=== PATIENT | female | born 1965 | race African-American/Black ===

== ENCOUNTER 2016-12-01 10:04 | Inpatient (IN) | payer BC ==
[~2016-12-01] VITALS: Ht 162.6 cm; Wt 75.3 kg
[2016-12-01 10:16] VITALS: BP 158/94
[2016-12-01] MEDS ORDERED: OXYCODONE-ACET1 EAC3 ORAL (10:56)
[2016-12-01] MEDS ORDERED: AMOX TR-K CLV1 EAC2 ORAL (10:56)
[2016-12-01] MEDS ORDERED: ZOFRAN ODT8 MG ORAL (10:56)
[2016-12-01] MEDS ORDERED: KETOROLAC TROME10 MG PO (10:56)
[2016-12-01 11:18] LABS: APPEARANCE,URINE SLIGHTLY CLOUDY; KETONES,URINE 3+ (NEGATIVE); LEUKOCYTE ESTERASE ,URINE 2+ (NEGATIVE); NITRITE,URINE NEGATIVE (NEGATIVE); PH,URINE 6 (4.5-8.0); PROTEIN,URINE 2+ (NEGATIVE); UROBILINOGEN,URINE NORMAL MG/DL (0.0-1.0)
[2016-12-01 11:18] LABS: BASOPHILS % (AUTO) 1.5 % (0.0-2.0); LYMPHOCYTES % (AUTO) 9.8 % (20.0-45.0); MEAN CORPUSCULAR HEMOGLOBIN 29.2 PG (27.0-31.0); MEAN CORPUSCULAR HGB CONC 31.7 G/DL (32.0-36.0); MEAN CORPUSCULAR VOLUME 92 FL (80-99); MEAN PLATELET VOLUME 8.6 FL (6.5-10.1); MONOCYTES % (AUTO) 6.4 % (1.0-10.0); NEUTROPHILS % (AUTO) 82.3 % (45.0-75.0); PLATELET COUNT 288 K/UL (150-450); RED BLOOD COUNT 4.62 M/UL (4.20-5.40); RED CELL DISTRIBUTION WIDTH 11.4 % (11.6-14.8); WHITE BLOOD COUNT 10.9 K/UL (4.8-10.8)
[2016-12-01 11:28] LABS: BACTERIA,URINE FEW /HPF; SQUAMOUS EPITHELIAL CELL,UR MODERATE /LPF (NONE/OCC)
[2016-12-01 11:29] VITALS: BP 152/82
[2016-12-01 11:29] LABS: MUCUS,URINE FEW /LPF (NONE/OCC)
[2016-12-01] MEDS ORDERED: LORazepam Inj 2mg/ml 1ml IV ONE (11:30)
[2016-12-01] MEDS ORDERED: Metoclopramide 10mg/2ml Inj IVP ONE (11:30)
[2016-12-01 11:45] LABS: ALANINE AMINOTRANSFERASE 10 U/L (3-33); ALBUMIN/GLOBULIN RATIO 1.4 (1.0-2.7); ASPARTATE AMINO TRANSFERASE 19 U/L (5-40); CALCIUM 9.4 mg/dL (8.6-10.2); CARBON DIOXIDE 25 mEQ/L (20-30); CHLORIDE 100 mEQ/L (98-107); CREATININE 0.7 mg/dL (0.5-0.9); GLOMERULAR FILTRATION RATE > 60 mL/min (>60); HEMOLYSIS 3; LIPASE 13 U/L (< 60); SODIUM 143 mEQ/L (135-145); TOTAL PROTEIN 7.7 g/dL (6.6-8.7)
[2016-12-01 11:50] LABS: ANION GAP 18 (5-15)
[2016-12-01 11:54] LABS: POTASSIUM 2.6 mEQ/L (3.4-4.9)
[2016-12-01] MEDS ORDERED: KCl 10% 40mEq/30ml liquid ORAL ONE (12:00)
--- NOTE | 2016-12-01 12:39 | Consultation ---
Consult Note Consult Note see full dictation MARJORIE THOMAS Dec 01, 2016 12:39
[2016-12-01] MEDS ORDERED: Ketorolac 60mg Inj IV PRN (12:45)
[2016-12-01] MEDS ORDERED: Miralax 17gm pkt ORAL PRN (12:45)
--- NOTE | 2016-12-01 12:59 | Emergency Room Report ---
History of Present Illness General Chief Complaint: Nausea Source: Patient Present Illness HPI [id number] presents sent by Dr Fernandes for severe post-op nausea, unrelieved with zofran, since embolization for uterine fibroids 3 days ago. Denies vomiting, diarrhea, fever/chills. Denies abd pain, urinary complaints. Allergies: Coded Allergies: No Known Allergies (Verified Allergy, Unknown, 10/29/07) Patient History Past Medical History: other - uterine fibroids Past Surgical History: other - uterine embolization Pertinent Family History: none Social History: Denies: alcohol use, drug use, smoking Last Menstrual Period: 11/11/16 Now: No : 4 Para: 2 Immunizations: UTD Reviewed Nursing Documentation: PMH: Agreed, PSxH: Agreed Nursing Documentation-PMH Past Medical History: No Stated History Review of Systems All Other Systems: negative except mentioned in HPI Physical Exam Vital Signs Date Time Temp Pulse Resp B/P Pulse Ox O2 Delivery O2 Flow Rate FiO2 12/01/16 10:10 98.2 77 18 158/94 100 Room Air Sp02 EP Interpretation: reviewed, normal General Appearance: normal inspection, well appearing, no apparent distress, alert, GCS 15, non-toxic Head: normocephalic, atraumatic Eyes: bilateral eye EOMI, bilateral eye PERRL ENT: normal ENT inspection, hearing grossly normal, normal voice Neck: normal inspection, full range of motion, supple, no bony tend Respiratory: normal inspection, lungs clear, normal breath sounds, no respiratory distress, no retraction, no wheezing Cardiovascular #1: regular rate, rhythm, no edema Gastrointestinal: normal inspection, normal bowel sounds, non tender, soft, no guarding, no hernia Genitourinary: no CVA tenderness Musculoskeletal: normal inspection, back normal, normal range of motion, Abraham' s Sign negative Neurologic: normal inspection, alert, oriented x3, responsive, handtools repairer III-XII nml as tested, motor strength/tone normal, speech normal Psychiatric: normal inspection, judgement/insight normal, mood/affect normal Skin: normal inspection, normal color, no rash Lymphatic: normal inspection Medical Decision Making Diagnostic Impression: Primary Impression: Nausea alone Additional Impression: Hypokalemia ER Course Severe post-op nausea - K depleted. Was repleted in ED - Nausea improved, tolerating PO s/p IV reglan, ativan - Mild leuks 11k. UA with WBCs but also many squams, likely contaminated - Abd serially non-focal - CTAP: No acute findings. Enlarged uterus with fibroids. - Findings above communicated to Dr Fernandes on phone Agrees for admission at 1pm to med/surg bed Advised HOLDING on ABx for now Last Vital Signs Date Time Temp Pulse Resp B/P Pulse Ox O2 Delivery O2 Flow Rate FiO2 12/01/16 11:29 97.4 61 14 152/82 98 Room Air Status: improved Disposition: ADMITTED INPATIENT Condition: Serious Referrals: NON PHYSICIAN (PCP) GURVINDER YUSUF M.D. Dec 01, 2016 12:59
[2016-12-01] MEDS ORDERED: Metoclopramide 10mg/2ml Inj IVP PRN (13:15)
[2016-12-01] MEDS ORDERED: HYDROmorphone 1mg/ml Carpuject IVP PRN (13:15)
[2016-12-01] MEDS ORDERED: Ketorolac 30mg Inj IV PRN ×2 (13:30→13:48)
[2016-12-01] MEDS ORDERED: Docusate 100mg cap ORAL ONE (13:30)
[2016-12-01 13:32] VITALS: BP 143/78
--- NOTE | 2016-12-01 14:01 | General Surgery Progress Note ---
General Surgery-Progress Note Subjective Day of Surgery: november 29, 2016 Reason for Consult uncontrolled post operative nausea Procedure Performed uterine artery embolization Symptoms: pain absent, not tolerating diet, passing flatus Objective Last 24 Hour Vital Signs Date Time Temp Pulse Resp B/P Pulse Ox O2 Delivery O2 Flow Rate FiO2 12/01/16 13:32 97.1 70 20 143/78 96 Room Air 12/01/16 13:04 97.4 61 14 152/82 98 Room Air 12/01/16 11:29 97.4 61 14 152/82 98 Room Air 12/01/16 10:16 98.2 18 158/94 100 Room Air 12/01/16 10:10 98.2 77 18 158/94 100 Room Air Dressing: dry Wound: clean Drains: none Cardiovascular: RSR Respiratory: clear Abdomen: soft, flat, present bowel sounds Extremities: no edema, no tenderness, no cyanosis Laboratory Tests Test 12/01/16 10:18 12/01/16 10:45 Urine Color Yellow Urine Appearance Slightly cloudy Urine pH 6 (4.5-8.0) Urine Specific [place] 1.020 (1.005-1.035) Urine Protein 2+ (NEGATIVE) H Urine Glucose (UA) Negative (NEGATIVE) Urine Ketones 3+ (NEGATIVE) H Urine Occult Blood 4+ (NEGATIVE) H Urine Nitrite Negative (NEGATIVE) Urine Bilirubin Negative (NEGATIVE) Urine Urobilinogen Normal MG/DL (0.0-1.0) Urine Leukocyte Esterase 2+ (NEGATIVE) H Urine RBC 5-10 /HPF (0 - 2) H Urine WBC 5-10 /HPF (0 - 2) H Urine Squamous Epithelial Cells Moderate /LPF (NONE/OCC) H Urine Bacteria Few /HPF (NONE) Urine Mucus Few /LPF (NONE/OCC) H Urine HCG, Qualitative Negative White Blood Count 10.9 K/UL (4.8-10.8) H Red Blood Count 4.62 M/UL (4.20-5.40) Hemoglobin 13.5 G/DL (12.0-16.0) Hematocrit 42.6 % (37.0-47.0) Mean Corpuscular Volume 92 FL (80-99) Mean Corpuscular Hemoglobin 29.2 PG (27.0-31.0) Mean Corpuscular Hemoglobin Concent 31.7 G/DL (32.0-36.0) L Red Cell Distribution Width 11.4 % (11.6-14.8) L Platelet Count 288 K/UL (150-450) Mean Platelet Volume 8.6 FL (6.5-10.1) Neutrophils (%) (Auto) 82.3 % (45.0-75.0) H Lymphocytes (%) (Auto) 9.8 % (20.0-45.0) L Monocytes (%) (Auto) 6.4 % (1.0-10.0) Eosinophils (%) (Auto) 0.0 % (0.0-3.0) Basophils (%) (Auto) 1.5 % (0.0-2.0) Sodium Level 143 mEQ/L (135-145) Potassium Level 2.6 mEQ/L (3.4-4.9) *L Chloride Level 100 mEQ/L (98-107) Carbon Dioxide Level 25 mEQ/L (20-30) Anion Gap 18 (5-15) H Blood Urea Nitrogen 8 mg/dL (7-23) Creatinine 0.7 mg/dL (0.5-0.9) Estimat Glomerular Filtration Rate > 60 mL/min (>60) Glucose Level 132 mg/dL (74-106) H Calcium Level 9.4 mg/dL (8.6-10.2) Total Bilirubin 0.8 mg/dL (0.0-1.2) Aspartate Amino Transf (AST/SGOT) 19 U/L (5-40) Alanine Aminotransferase (ALT/SGPT) 10 U/L (3-33) Alkaline Phosphatase 70 U/L (35-104) Total Protein 7.7 g/dL (6.6-8.7) Albumin 4.5 g/dL (3.5-5.2) Globulin 3.2 g/dL Albumin/Globulin Ratio 1.4 (1.0-2.7) Amylase Level Pending Lipase 13 U/L (< 60) Imaging CT scan abdomen and pelvis, no acute findings. hypokalemia noted inED Assessment Post-op Diagnosis nausea, vomiting uncontrolled on admission, now improved. GI consult appreciated. possible response to narcotics. Plan Additional Comments iv hydration, anti nausea medication, replace potassium. Raymond Fernandes MD Dec 01, 2016 14:01
[2016-12-01] MEDS: ceFAZolin sod 1 GM in D5W 55 ML IVPB SCH ×2 (14:57→21:35)
[2016-12-01] MEDS: Potassium Chloride 30 MEQ in Dextrose 5%/Lactated Ringer's 1,000 ML IV SCH ×2 (15:00→21:35)
[2016-12-01 15:55] VITALS: BP 147/83
[2016-12-01 20:11] VITALS: BP 130/67
--- NOTE | 2016-12-01 22:30 | Consultation ---
DATE OF CONSULTATION: 12/01/2016 GASTROENTEROLOGY CONSULTATION CHIEF COMPLAINT: Nausea, vomiting, and abdominal pain. HISTORY OF PRESENT ILLNESS: This is a pleasant 51-year-old female, who had a uterine embolization on Friday. She was sent home. She started having pain and vomiting. She said that she is not sure if it is secondary to Percocet that she is taking because Percocet made her sick in the past. She is able to pass the bowel movement with MiraLAX. No sign or symptoms of bowel obstruction. She is able to pass gas. No hematemesis. No dysphagia. No odynophagia. PAST MEDICAL HISTORY: Significant for history of uterine fibroids, status post embolization. MEDICATIONS: Please see medication reconciliation list. ALLERGIES: No known drug allergies. SOCIAL HISTORY: The patient denies any tobacco, alcohol, or drug abuse. FAMILY HISTORY: No family history of GI malignancies. REVIEW OF SYSTEMS: A 10-point review of system was performed and pertinent positives in history of present illness. PHYSICAL EXAMINATION: VITAL SIGNS: Temperature 97.4 degrees, pulse 61, respiratory rate 14, and blood pressure 150/82. HEENT: Normocephalic and atraumatic. Sclerae anicteric. NECK: Supple. No JVD. CARDIOVASCULAR: Regular and rhythm. Plus S1 and S2. LUNGS: Clear to auscultation bilaterally. ABDOMEN: Bowel sounds are present. Soft. Tenderness with palpation in the epigastric area. No rebound. No guarding. No peritoneal sign. EXTREMITIES: No cyanosis. No clubbing. No edema. LABORATORY AND DIAGNOSTIC DATA: White count is 10.9, hemoglobin 13, hematocrit 42, and platelet count is 288,000. Sodium 143, potassium 3.6, BUN is 8, and creatinine 0.7. Liver function grossly normal. CT of the abdomen and pelvis ordered and results are pending. ASSESSMENT AND PLAN: This is a 51-year-old female with nausea and vomiting post uterine embolization. This is because of nausea and vomiting, at this time one possibility will be this is Percocet, plain narcotics-based of having vomiting. There is no sign or symptoms of bowel obstruction. At this time, no abnormal liver function test. Abdominal exam is relatively benign. Plan to follow up on a CT scan, which has been already done. We will follow on the results. Start the patient on Reglan and Zofran for nausea and vomiting. Avoid narcotics. Toradol for pain management. MiraLAX for constipation. We will follow. Stephen Pineda M.D. DR: STEVAN JOB#: [id number] CC:
[2016-12-02 00:31] VITALS: BP 128/71
[2016-12-02] MEDS: Potassium Chloride 30 MEQ in Dextrose 5%/Lactated Ringer's 1,000 ML IV SCH ×3 (01:59→16:25)
[2016-12-02 04:13] VITALS: BP 129/72
[2016-12-02] MEDS: ceFAZolin sod 1 GM in D5W 55 ML IVPB SCH ×4 (05:29→21:47)
[2016-12-02 06:50] LABS: ALANINE AMINOTRANSFERASE 8 U/L (3-33); ALBUMIN/GLOBULIN RATIO 1.3 (1.0-2.7); ANION GAP 16 (5-15); ASPARTATE AMINO TRANSFERASE 18 U/L (5-40); CALCIUM 9.3 mg/dL (8.6-10.2); CARBON DIOXIDE 26 mEQ/L (20-30); CHLORIDE 100 mEQ/L (98-107); CREATININE 0.6 mg/dL (0.5-0.9); GLOMERULAR FILTRATION RATE > 60 mL/min (>60); HEMOLYSIS 3; POTASSIUM 3.4 mEQ/L (3.4-4.9); SODIUM 142 mEQ/L (135-145); TOTAL PROTEIN 6.6 g/dL (6.6-8.7)
[2016-12-02 07:03] LABS: BASOPHILS % (AUTO) 2.2 % (0.0-2.0); EOSINOPHILS % (AUTO) 0.3 % (0.0-3.0); LYMPHOCYTES % (AUTO) 18.6 % (20.0-45.0); MEAN CORPUSCULAR HEMOGLOBIN 30.2 PG (27.0-31.0); MEAN CORPUSCULAR HGB CONC 32.4 G/DL (32.0-36.0); MEAN CORPUSCULAR VOLUME 93 FL (80-99); MEAN PLATELET VOLUME 7.8 FL (6.5-10.1); NEUTROPHILS % (AUTO) 68.1 % (45.0-75.0); PLATELET COUNT 241 K/UL (150-450); RED BLOOD COUNT 4.27 M/UL (4.20-5.40); RED CELL DISTRIBUTION WIDTH 11.2 % (11.6-14.8); WHITE BLOOD COUNT 9.5 K/UL (4.8-10.8)
[2016-12-02 08:00] VITALS: BP 133/78
--- NOTE | 2016-12-02 10:01 | General Surgery Progress Note ---
General Surgery-Progress Note Subjective Day of Surgery: november 29 Procedure Performed uterine artery embolization Symptoms: improved, tolerating diet, passing flatus, BM Objective Last 24 Hour Vital Signs Date Time Temp Pulse Resp B/P Pulse Ox O2 Delivery O2 Flow Rate FiO2 12/02/16 08:00 97.0 61 17 133/78 98 Room Air 12/02/16 04:13 98.1 66 19 129/72 96 Room Air 12/02/16 00:31 99.1 65 18 128/71 97 Room Air 12/01/16 21:00 99.0 12/01/16 20:11 100.0 86 18 130/67 100 Room Air 12/01/16 16:57 98.4 12/01/16 15:55 102.2 72 20 147/83 96 Room Air 12/01/16 13:32 97.1 70 20 143/78 96 Room Air 12/01/16 13:04 97.4 61 14 152/82 98 Room Air 12/01/16 11:29 97.4 61 14 152/82 98 Room Air 12/01/16 10:16 98.2 18 158/94 100 Room Air 12/01/16 10:10 98.2 77 18 158/94 100 Room Air I&O Intake and Output 12/01/16 12/02/16 19:00 07:00 Intake Total 655 ml 1610 ml Balance 655 ml 1610 ml Intake IV Total 655 ml 1610 ml # Voids 1 2 Dressing: dry Wound: clean Drains: none Cardiovascular: RSR Respiratory: clear Abdomen: soft, flat, non-tender, present bowel sounds Laboratory Tests Test 12/01/16 10:18 12/01/16 10:45 12/02/16 05:30 Urine Color Yellow Urine Appearance Slightly cloudy Urine pH 6 (4.5-8.0) Urine Specific [place] 1.020 (1.005-1.035) Urine Protein 2+ (NEGATIVE) H Urine Glucose (UA) Negative (NEGATIVE) Urine Ketones 3+ (NEGATIVE) H Urine Occult Blood 4+ (NEGATIVE) H Urine Nitrite Negative (NEGATIVE) Urine Bilirubin Negative (NEGATIVE) Urine Urobilinogen Normal MG/DL (0.0-1.0) Urine Leukocyte Esterase 2+ (NEGATIVE) H Urine RBC 5-10 /HPF (0 - 2) H Urine WBC 5-10 /HPF (0 - 2) H Urine Squamous Epithelial Cells Moderate /LPF (NONE/OCC) H Urine Bacteria Few /HPF (NONE) Urine Mucus Few /LPF (NONE/OCC) H Urine HCG, Qualitative Negative White Blood Count 10.9 K/UL (4.8-10.8) H 9.5 K/UL (4.8-10.8) Red Blood Count 4.62 M/UL (4.20-5.40) 4.27 M/UL (4.20-5.40) Hemoglobin 13.5 G/DL (12.0-16.0) 12.9 G/DL (12.0-16.0) Hematocrit 42.6 % (37.0-47.0) 39.8 % (37.0-47.0) Mean Corpuscular Volume 92 FL (80-99) 93 FL (80-99) Mean Corpuscular Hemoglobin 29.2 PG (27.0-31.0) 30.2 PG (27.0-31.0) Mean Corpuscular Hemoglobin Concent 31.7 G/DL (32.0-36.0) L 32.4 G/DL (32.0-36.0) Red Cell Distribution Width 11.4 % (11.6-14.8) L 11.2 % (11.6-14.8) L Platelet Count 288 K/UL (150-450) 241 K/UL (150-450) Mean Platelet Volume 8.6 FL (6.5-10.1) 7.8 FL (6.5-10.1) Neutrophils (%) (Auto) 82.3 % (45.0-75.0) H 68.1 % (45.0-75.0) Lymphocytes (%) (Auto) 9.8 % (20.0-45.0) L 18.6 % (20.0-45.0) L Monocytes (%) (Auto) 6.4 % (1.0-10.0) 11.0 % (1.0-10.0) H Eosinophils (%) (Auto) 0.0 % (0.0-3.0) 0.3 % (0.0-3.0) Basophils (%) (Auto) 1.5 % (0.0-2.0) 2.2 % (0.0-2.0) H Sodium Level 143 mEQ/L (135-145) 142 mEQ/L (135-145) Potassium Level 2.6 mEQ/L (3.4-4.9) *L 3.4 mEQ/L (3.4-4.9) Chloride Level 100 mEQ/L (98-107) 100 mEQ/L (98-107) Carbon Dioxide Level 25 mEQ/L (20-30) 26 mEQ/L (20-30) Anion Gap 18 (5-15) H 16 (5-15) H Blood Urea Nitrogen 8 mg/dL (7-23) 6 mg/dL (7-23) L Creatinine 0.7 mg/dL (0.5-0.9) 0.6 mg/dL (0.5-0.9) Estimat Glomerular Filtration Rate > 60 mL/min (>60) > 60 mL/min (>60) Glucose Level 132 mg/dL (74-106) H 124 mg/dL (74-106) H Calcium Level 9.4 mg/dL (8.6-10.2) 9.3 mg/dL (8.6-10.2) Total Bilirubin 0.8 mg/dL (0.0-1.2) 0.7 mg/dL (0.0-1.2) Aspartate Amino Transf (AST/SGOT) 19 U/L (5-40) 18 U/L (5-40) Alanine Aminotransferase (ALT/SGPT) 10 U/L (3-33) 8 U/L (3-33) Alkaline Phosphatase 70 U/L (35-104) 67 U/L (35-104) Total Protein 7.7 g/dL (6.6-8.7) 6.6 g/dL (6.6-8.7) Albumin 4.5 g/dL (3.5-5.2) 3.8 g/dL (3.5-5.2) Globulin 3.2 g/dL 2.8 g/dL Albumin/Globulin Ratio 1.4 (1.0-2.7) 1.3 (1.0-2.7) Amylase Level 77 U/L (10-110) Lipase 13 U/L (< 60) Imaging CT scan reviewed, normal bowel, contrast in gall bladder secondary to uae procedure Additional Comments wbc down today, no growth on cultures Assessment Post-op Diagnosis nausea, vomiting uncontrolled on admission, now improved. GI consult appreciated. possible response to narcotics. Additional Comments symptoms improved, "gas pain" today Plan Additional Comments per GI, will advance diet, and rx gas pain, probable am discharge tomorrow. Raymond Fernandes MD Dec 02, 2016 10:01
--- NOTE | 2016-12-02 11:06 | Diagnostic Imaging Report ---
Clinical Indication: Abdominal pain Technique: No oral contrast utilized, per emergency room physician request IV administration nonionic contrast. Venous phase spiral acquisition obtained through the abdomen and pelvis. Multiplanar reconstructions were generated. Total dose length product 776 mGycm. CTDIvol(s) 16 mGy. Dose reduction achieved using automated exposure control Comparison: None Findings: The appendix is normal. No evidence of diverticulosis or diverticulitis. No small bowel distention. No free or loculated intraperitoneal air or fluid. Probable small sliding-type hiatal hernia noted. The stomach and duodenum are unremarkable. The gallbladder contains dense material, possibly excreted contrast from an earlier study. A subtle 8 mm low-attenuation lesion is seen in the dome of the right hepatic lobe. This is in segment 8. The pancreas, spleen, cysts adrenals, kidney are unremarkable. The uterus is enlarged, demonstrates multiple low-attenuation and masses as well as there is a calcification, consistent with fibroid changes. No adnexal. No retroperitoneal, pelvic, mesenteric mass or adenopathy demonstrated. Surgical clips are seen in the right pelvis. The lung bases demonstrate posterior dependent atelectatic changes, particularly on the right. The bones are unremarkable. Impression: No acute abnormality Increased attenuation in the gallbladder, most likely excretion of prior contrast, could represent milk of calcium bile or tiny layering stones Evidence of prior pelvic surgery Fibroid uterus Bilateral basilar pulmonary parenchymal dependent atelectatic changes. Low-attenuation subcentimeter right lobe liver lesion, too small to characterize, most likely benign simple cysts or bile hamartomas. No further followup necessary. Incidental note of possible sliding-type hiatal hernia This agrees with the preliminary interpretation provided overnight by Dr. Cabrera The CT scanner at [facility] is accredited by the [employer] and the scans are performed using protocols designed to limit radiation exposure to as low as reasonably achievable to attain images of sufficient resolution adequate for diagnostic evaluation.
[2016-12-02 12:00] VITALS: BP 132/79
[2016-12-02 16:00] VITALS: BP 130/70
[2016-12-02] MEDS: Simethicone 80mg tab ORAL PRN ×2 (18:10→22:00)
[2016-12-02 20:24] VITALS: BP 119/74
[2016-12-03 00:12] VITALS: BP 121/74
[2016-12-03] MEDS: Potassium Chloride 30 MEQ in Dextrose 5%/Lactated Ringer's 1,000 ML IV SCH (01:05)
[2016-12-03] MEDS: ceFAZolin sod 1 GM in D5W 55 ML IVPB SCH (01:05)
[2016-12-03 04:00] VITALS: BP 127/63
--- NOTE | 2016-12-03 07:28 | General Progress Note ---
Assessment/Plan Assessment/Plan Assessment - Resolved N/V - Uterine fibroid - s/p uterine artery embolization Recommendations - PO diet - follow exam - BRANCH LENDING MANAGER f/u Subjective Allergies: Coded Allergies: No Known Allergies (Verified Allergy, Unknown, 10/29/07) Subjective Feels much better no abd pain nausea resolved hungry (+) BM yesterday Objective Last 24 Hour Vital Signs Date Time Temp Pulse Resp B/P Pulse Ox O2 Delivery O2 Flow Rate FiO2 12/03/16 04:00 98.2 55 19 127/63 98 Room Air 12/03/16 00:12 99.1 55 18 121/74 99 Room Air 12/02/16 20:24 99.5 57 20 119/74 99 Room Air 12/02/16 16:58 98.2 12/02/16 16:00 98.2 57 18 130/70 98 Room Air 12/02/16 12:00 98.4 54 16 132/79 97 Room Air 12/02/16 10:31 97.0 12/02/16 08:00 97.0 61 17 133/78 98 Room Air Intake and Output 12/02/16 12/03/16 19:00 07:00 # Voids 3 Height (Feet): 5 Height (Inches): 4.00 Weight (Pounds): 166 Objective WDWN AA woman NCAT supple CTA RRR abd soft ND NT no edema non focal patient seen 12/02/16. This is a delayed entry note. ALDO HERNANDEZ Dec 03, 2016 07:28
[2016-12-03 08:37] VITALS: BP 145/76
[2016-12-03 10:34] LABS: BASOPHILS % (AUTO) 1.7 % (0.0-2.0); EOSINOPHILS % (AUTO) 0.4 % (0.0-3.0); LYMPHOCYTES % (AUTO) 24.1 % (20.0-45.0); MEAN CORPUSCULAR HEMOGLOBIN 29.3 PG (27.0-31.0); MEAN CORPUSCULAR HGB CONC 31.2 G/DL (32.0-36.0); MEAN CORPUSCULAR VOLUME 94 FL (80-99); MEAN PLATELET VOLUME 7.8 FL (6.5-10.1); MONOCYTES % (AUTO) 11.9 % (1.0-10.0); NEUTROPHILS % (AUTO) 61.9 % (45.0-75.0); PLATELET COUNT 217 K/UL (150-450); RED BLOOD COUNT 3.94 M/UL (4.20-5.40); RED CELL DISTRIBUTION WIDTH 11.1 % (11.6-14.8)
[2016-12-03 10:57] LABS: ANION GAP 15 (5-15); CARBON DIOXIDE 26 mEQ/L (20-30); CHLORIDE 99 mEQ/L (98-107); CREATININE 0.6 mg/dL (0.5-0.9); GLOMERULAR FILTRATION RATE > 60 mL/min (>60); HEMOLYSIS 8; POTASSIUM 3.7 mEQ/L (3.4-4.9); SODIUM 140 mEQ/L (135-145)
[2016-12-03 12:00] VITALS: BP 133/72
[2016-12-03] MEDS ORDERED: NKM (20:14)
--- NOTE | 2016-12-03 21:55 | General Progress Note ---
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 - dc planning Subjective Allergies: Coded Allergies: No Known Allergies (Verified Allergy, Unknown, 10/29/07) Subjective Feels well no abd pain nausea resolved (+) BM Objective Last 24 Hour Vital Signs Date Time Temp Pulse Resp B/P Pulse Ox O2 Delivery O2 Flow Rate FiO2 12/03/16 12:00 98.0 56 20 133/72 Room Air 12/03/16 08:37 98.1 55 18 145/76 100 Room Air 12/03/16 04:00 98.2 55 19 127/63 98 Room Air 12/03/16 00:12 99.1 55 18 121/74 99 Room Air Intake and Output 12/02/16 12/03/16 19:00 07:00 # Voids 3 Laboratory Tests 12/03/16 10:15: White Blood Count 7.0, Red Blood Count 3.94L, Hemoglobin 11.5L, Hematocrit 36.9L , Mean Corpuscular Volume 94, Mean Corpuscular Hemoglobin 29.3, Mean Corpuscular Hemoglobin Concent 31.2L, Red Cell Distribution Width 11.1L, Platelet Count 217, Mean Platelet Volume 7.8, Neutrophils (%) (Auto) 61.9, Lymphocytes (%) (Auto) 24.1, Monocytes (%) (Auto) 11.9H, Eosinophils (%) (Auto) 0.4, Basophils (%) (Auto) 1.7, Sodium Level 140, Potassium Level 3.7, Chloride Level 99, Carbon Dioxide Level 26, Anion Gap 15, Blood Urea Nitrogen 3L, Creatinine 0.6, Estimat Glomerular Filtration Rate > 60, Glucose Level 114H, Calcium Level 9.0 Height (Feet): 5 Height (Inches): 4.00 Weight (Pounds): 166 Objective WDWN AA woman NCAT supple CTA RRR abd soft ND NT no edema non focal ALDO HERNANDEZ Dec 03, 2016 21:54
--- NOTE | 2016-12-05 09:27 | Discharge Summary ---
Discharge Summary Hospital Course Date of Admission Dec 01, 2016 at 10:58 Date of Discharge Dec 03, 2016 at 13:10 Admitting Diagnosis Post Operative Nausea JOSR Talamantes is a 51 year old female who was admitted on Dec 01, 2016 at 10:58 for Post Operative Nausea Hospital Course [id number] Discharge Discharge Disposition Patient was discharged to home Discharge Diagnoses: Brielle Wayne NP Dec 05, 2016 09:27
--- NOTE | 2016-12-05 22:31 | Discharge Summary 2 SIG ---
DATE OF ADMISSION: 12/01/2016 DATE OF DISCHARGE: 12/03/2016 CONSULTANTS: Sana Lucas M.D. BRIEF HOSPITAL COURSE: The patient is a 51-year-old female, who had uterine embolization on 11/29/2016. She was sent home and started to have abdominal pain and vomiting. She was able to pass bowel movement with MiraLAX. There was no sign or symptom of bowel obstruction and she was able to pass gas. She was followed by GI service. She was not tolerating diet. She was given IV hydration, antinausea medications, and potassium was replaced, potassium was 2.6. Abdominal and pelvic CT showed no acute abnormality with increased attenuation in the gallbladder, fibroid uterus, and evidence of prior pelvic surgery. The patient had bowel movement. Nausea and vomiting resolved. The patient was eventually discharged home. FINAL DIAGNOSES: 1. Uterine fibroids, status post recent uterine artery embolization. 2. Nausea and vomiting. Raymond Durbin M.D. I have been assigned to dictate discharge summary on this account and I was not involved in the patient's management. Brielle Wayne N.P. DR: ESMER JOB#: [id number] CC:
--- NOTE | 2016-12-05 23:06 | General Progress Note ---
Assessment/Plan Assessment/Plan Assessment - Resolved N/V - Uterine fibroid - s/p uterine artery embolization Recommendations - PO diet - follow exam - [employer] f/u - dc planning Subjective Allergies: Coded Allergies: No Known Allergies (Verified Allergy, Unknown, 10/29/07) Subjective Feels well no abd pain nausea resolved (+) BM for d/c today Objective Height (Feet): 5 Height (Inches): 4.00 Weight (Pounds): 166 Objective WDWN AA woman NCAT supple CTA RRR abd soft ND NT no edema non focal ALDO HERNANDEZ Dec 05, 2016 23:06
== END 2016-12-03 13:10 | disposition home or self-care (01) | DRG 392 ==
LOC: EMR 10:55 → 3E 10:58 → EDBEDREQ 12:28 → 3E 13:58
DX: R11.2 Nausea with vomiting, unspecified (principal); E87.6 Hypokalemia; Z98.890 Other specified postprocedural states
CPT/HCPCS: 36415; 74177; 80048; 80053; 81003; 81025; 82150; 83690; 85025; 87040; 87081; 87086; 87324; J2405; J2765

== ENCOUNTER 2016-12-03 20:04 | Inpatient (IN) | payer BC ==
[~2016-12-03] VITALS: Ht 162.6 cm; Wt 75.3 kg
[~2016-12-03 20:04] MED LIST: AMOX TR-K CLV1 EAC2 ORAL; KETOROLAC TROME10 MG PO; OXYCODONE-ACET1 EAC3 ORAL; ZOFRAN ODT8 MG ORAL
[2016-12-03] MEDS ORDERED: NKM (20:14)
[2016-12-03 20:20] VITALS: BP 140/72
[2016-12-03] MEDS ORDERED: HYDROmorphone 1mg/ml Carpuject IVP ONE (20:30)
[2016-12-03 21:07] LABS: APPEARANCE,URINE CLEAR; KETONES,URINE 3+ (NEGATIVE); LEUKOCYTE ESTERASE ,URINE 2+ (NEGATIVE); NITRITE,URINE NEGATIVE (NEGATIVE); PH,URINE 8 (4.5-8.0); PROTEIN,URINE 1+ (NEGATIVE); UROBILINOGEN,URINE NORMAL MG/DL (0.0-1.0)
[2016-12-03 21:12] LABS: BASOPHILS % (AUTO) 1.5 % (0.0-2.0); EOSINOPHILS % (AUTO) 0.2 % (0.0-3.0); LYMPHOCYTES % (AUTO) 10.7 % (20.0-45.0); MEAN CORPUSCULAR HEMOGLOBIN 30.4 PG (27.0-31.0); MEAN CORPUSCULAR HGB CONC 32.9 G/DL (32.0-36.0); MEAN CORPUSCULAR VOLUME 92 FL (80-99); MEAN PLATELET VOLUME 7.6 FL (6.5-10.1); MONOCYTES % (AUTO) 4.7 % (1.0-10.0); NEUTROPHILS % (AUTO) 82.9 % (45.0-75.0); PLATELET COUNT 235 K/UL (150-450); RED BLOOD COUNT 4.15 M/UL (4.20-5.40); RED CELL DISTRIBUTION WIDTH 11.3 % (11.6-14.8); WHITE BLOOD COUNT 9.2 K/UL (4.8-10.8)
[2016-12-03 21:16] LABS: AMORPHOUS SEDIMENT,UR MODERATE /LPF; BACTERIA,URINE MODERATE /HPF; SQUAMOUS EPITHELIAL CELL,UR MODERATE /LPF (NONE/OCC)
[2016-12-03 21:20] LABS: ALANINE AMINOTRANSFERASE 8 U/L (3-33); ALBUMIN/GLOBULIN RATIO 1.4 (1.0-2.7); ANION GAP 18 (5-15); ASPARTATE AMINO TRANSFERASE 16 U/L (5-40); CALCIUM 9.5 mg/dL (8.6-10.2); CARBON DIOXIDE 25 mEQ/L (20-30); CHLORIDE 97 mEQ/L (98-107); CREATININE 0.7 mg/dL (0.5-0.9); GLOMERULAR FILTRATION RATE > 60 mL/min (>60); HEMOLYSIS 2; LIPASE 19 U/L (< 60); SODIUM 140 mEQ/L (135-145); TOTAL PROTEIN 7.5 g/dL (6.6-8.7)
--- NOTE | 2016-12-03 21:22 | Emergency Room Report ---
History of Present Illness General Chief Complaint: Abdominal Pain Source: Patient (LORNA MOBLEY M.D.) Present Illness HPI 51-year-old female presents ED complaining of abdominal pain. Patient states she had uterine artery embolization surgery done for his days ago here at [place]. Patient was discharged today. On the way home she started to experience lower abdominal pain, sharp, 10 out of 10, nonradiating. Notes nausea and vomiting. Patient came back after she spoke to the surgeon Dr. Fernandes. Denies fevers chills. Denies chest pain or shortness of breath. No other aggravating or relieving factors. Denies any other associated symptoms (LORNA MOBLEY M.D.) Allergies: Coded Allergies: No Known Allergies (Verified Allergy, Unknown, 10/29/07) Patient History Past Medical History: none Past Surgical History: other - uterine artery embolization Pertinent Family History: none Social History: Denies: alcohol use, drug use, smoking Last Menstrual Period: now Now: No Immunizations: UTD Reviewed Nursing Documentation: PMH: Agreed, PSxH: Agreed (LORNA MOBLEY M.D.) Nursing Documentation-PMH Past Medical History: No History, Except For Hx Cardiac Problems: No Hx Cancer: No Hx Gastrointestinal Problems: No Hx Neurological Problems: No (LORNA MOBLEY M.D.) Review of Systems All Other Systems: negative except mentioned in HPI (LORNA MOBLEY M.D.) Physical Exam Vital Signs Date Time Temp Pulse Resp B/P Pulse Ox O2 Delivery O2 Flow Rate FiO2 12/03/16 20:08 98.6 77 16 159/76 100 Room Air Sp02 EP Interpretation: reviewed, normal General Appearance: alert, GCS 15, non-toxic, moderate distress Head: normocephalic Eyes: bilateral eye PERRL, bilateral eye normal inspection ENT: normal ENT inspection Neck: normal inspection Respiratory: chest non-tender, lungs clear, normal breath sounds, speaking full sentences Cardiovascular #1: regular rate, rhythm, no edema Gastrointestinal: normal bowel sounds, soft, non-distended, no guarding, no rebound, tenderness - lower abdomen Rectal: deferred Genitourinary: no CVA tenderness Musculoskeletal: normal inspection Neurologic: alert, oriented x3, responsive, motor strength/tone normal, sensory intact, speech normal Psychiatric: normal inspection Skin: normal inspection Lymphatic: normal inspection (LORNA MOBLEY M.D.) Medical Decision Making Diagnostic Impression: Primary Impression: Postoperative abdominal pain Additional Impressions: Status post embolization of uterine artery UTI (urinary tract infection) Labs Test 12/03/16 20:35 White Blood Count 9.2 K/UL (4.8-10.8) Red Blood Count 4.15 M/UL (4.20-5.40) Hemoglobin 12.6 G/DL (12.0-16.0) Hematocrit 38.3 % (37.0-47.0) Mean Corpuscular Volume 92 FL (80-99) Mean Corpuscular Hemoglobin 30.4 PG (27.0-31.0) Mean Corpuscular Hemoglobin Concent 32.9 G/DL (32.0-36.0) Red Cell Distribution Width 11.3 % (11.6-14.8) Platelet Count 235 K/UL (150-450) Mean Platelet Volume 7.6 FL (6.5-10.1) Neutrophils (%) (Auto) 82.9 % (45.0-75.0) Lymphocytes (%) (Auto) 10.7 % (20.0-45.0) Monocytes (%) (Auto) 4.7 % (1.0-10.0) Eosinophils (%) (Auto) 0.2 % (0.0-3.0) Basophils (%) (Auto) 1.5 % (0.0-2.0) Urine Color Pale yellow Urine Appearance Clear Urine pH 8 (4.5-8.0) Urine Specific [place] 1.020 (1.005-1.035) Urine Protein 1+ (NEGATIVE) Urine Glucose (UA) Negative (NEGATIVE) Urine Ketones 3+ (NEGATIVE) Urine Occult Blood 5+ (NEGATIVE) Urine Nitrite Negative (NEGATIVE) Urine Bilirubin Negative (NEGATIVE) Urine Urobilinogen Normal MG/DL (0.0-1.0) Urine Leukocyte Esterase 2+ (NEGATIVE) Urine RBC 10-15 /HPF (0 - 2) Urine WBC 5-10 /HPF (0 - 2) Urine Squamous Epithelial Cells Moderate /LPF (NONE/OCC) Urine Amorphous Sediment Moderate /LPF (NONE) Urine Bacteria Moderate /HPF (NONE) Sodium Level 140 mEQ/L (135-145) Potassium Level 3.0 mEQ/L (3.4-4.9) Chloride Level 97 mEQ/L (98-107) Carbon Dioxide Level 25 mEQ/L (20-30) Anion Gap 18 (5-15) Blood Urea Nitrogen 4 mg/dL (7-23) Creatinine 0.7 mg/dL (0.5-0.9) Estimat Glomerular Filtration Rate > 60 mL/min (>60) Glucose Level 130 mg/dL (74-106) Calcium Level 9.5 mg/dL (8.6-10.2) Total Bilirubin 0.6 mg/dL (0.0-1.2) Aspartate Amino Transf (AST/SGOT) 16 U/L (5-40) Alanine Aminotransferase (ALT/SGPT) 8 U/L (3-33) Alkaline Phosphatase 66 U/L (35-104) Total Protein 7.5 g/dL (6.6-8.7) Albumin 4.4 g/dL (3.5-5.2) Globulin 3.1 g/dL Albumin/Globulin Ratio 1.4 (1.0-2.7) Lipase 19 U/L (< 60) (LORNA MOBLEY M.D.) ER Course Patient signout to co for CT scan report. CT scan showed ileus. Patient already admitted. Symptoms better. (MYLENE HERNÁNDEZ M.D.) CT/MRI/US Diagnostic Results CT/MRI/US Diagnostic Results : Imaging Test Ordered: CT abdomen and pelvis Impression read by radiologist. Postoperative changes. Ileus. (MYLENE HERNÁNDEZ M.D.) Last Vital Signs Date Time Temp Pulse Resp B/P Pulse Ox O2 Delivery O2 Flow Rate FiO2 12/03/16 20:20 98.6 94 16 140/72 100 Room Air Status: improved (LORNA MOBLEY M.D.) Disposition: ADMITTED INPATIENT Condition: Serious Referrals: Raymond Fernandes MD (PCP) LORNA MOBLEY M.D. Dec 03, 2016 21:22 MYLENE HERNÁNDEZ M.D. Dec 03, 2016 23:04
[2016-12-03] MEDS ORDERED: cefTRIAXone 1 GM in NS 55 ML IVPB ONE (21:45)
[2016-12-03 22:00] VITALS: BP 142/74
[2016-12-03 22:30] VITALS: BP 147/86
[2016-12-03] MEDS ORDERED: HYDROmorphone 1mg/ml Carpuject IVP PRN ×2 (22:45→23:15)
[2016-12-03] MEDS ORDERED: Metoclopramide 10mg/2ml Inj IVP PRN (23:00)
[2016-12-03 23:30] VITALS: BP 138/70
[2016-12-03 23:40] VITALS: BP 147/86
[2016-12-04 04:00] VITALS: BP 123/76
[2016-12-04 07:09] LABS: BASOPHILS % (AUTO) 1.7 % (0.0-2.0); EOSINOPHILS % (AUTO) 0.6 % (0.0-3.0); LYMPHOCYTES % (AUTO) 21.6 % (20.0-45.0); MEAN CORPUSCULAR HEMOGLOBIN 29.9 PG (27.0-31.0); MEAN CORPUSCULAR HGB CONC 31.9 G/DL (32.0-36.0); MEAN CORPUSCULAR VOLUME 94 FL (80-99); NEUTROPHILS % (AUTO) 65.2 % (45.0-75.0); PLATELET COUNT 227 K/UL (150-450); RED BLOOD COUNT 3.71 M/UL (4.20-5.40); RED CELL DISTRIBUTION WIDTH 11.2 % (11.6-14.8); WHITE BLOOD COUNT 8.5 K/UL (4.8-10.8)
[2016-12-04 07:25] LABS: ALANINE AMINOTRANSFERASE 6 U/L (3-33); ALBUMIN/GLOBULIN RATIO 1.4 (1.0-2.7); ANION GAP 13 (5-15); ASPARTATE AMINO TRANSFERASE 13 U/L (5-40); CALCIUM 8.9 mg/dL (8.6-10.2); CARBON DIOXIDE 26 mEQ/L (20-30); CHLORIDE 101 mEQ/L (98-107); CREATININE 0.6 mg/dL (0.5-0.9); GLOMERULAR FILTRATION RATE > 60 mL/min (>60); HEMOLYSIS 2; POTASSIUM 3.1 mEQ/L (3.4-4.9); SODIUM 140 mEQ/L (135-145); TOTAL PROTEIN 6.3 g/dL (6.6-8.7)
[2016-12-04] MEDS ORDERED: Potassium Chloride 20 MEQ in Dextrose 5%/Lactated Ringer's 1,000 ML IV SCH (08:00)
[2016-12-04 08:05] VITALS: BP 137/66
--- NOTE | 2016-12-04 09:23 | Diagnostic Imaging Report ---
Clinical Indication: Bowel pain, history of recent uterine artery embolization Technique: No oral contrast utilized, per emergency room physician request IV administration nonionic contrast. Venous phase spiral acquisition obtained through the abdomen and pelvis. Multiplanar reconstructions were generated. Total dose length product 847 mGycm. CTDIvol(s) 17 mGy. Dose reduction achieved using automated exposure control Comparison: 12/01/2016 Findings: Lack of enteric contrast limits assessment of the GI tract. The cecum is prominent, fluid-filled, but does not demonstrate wall thickening. Mildly prominent borderline thick walled small bowel loops are seen in the left upper quadrant. No free or loculated intraperitoneal air or fluid. The duodenum, stomach, distal esophagus are unremarkable. There is a small umbilical hernia. Again demonstrated is a small sliding-type hiatal hernia Uterus demonstrates multiple areas of decreased attenuation, more strikingly hypoattenuating than on the previous study. Calcifications are seen within the uterus. What are likely embolization coils are seen in the right side of the pelvis. No gas is seen within the uterus Previously demonstrated gallbladder contrast is no longer evident. There may be a few small gallstones. The liver again demonstrates subtle low-attenuation lesion in segment 8. A second lesion also in segment 8 is now apparent, not evident on the prior exam. These are both too small to characterize The bile ducts, pancreas, spleen, adrenals, kidneys are unremarkable. No retroperitoneal or mesenteric mass or adenopathy. There is mild atherosclerosis of the left common iliac artery The included lung bases demonstrate interim development of small bilateral pleural effusions. There are posterior dependent atelectatic changes again demonstrated. The heart is borderline enlarged. The bones are unremarkable. Impression: Progressive decreased attenuation of uterine masses, consistent with progressive necrosis of embolized uterine fibroids. No evident complication. Mildly prominent fluid-filled ascending colon and a few small bowel loops, may represent mild ileus Small bilateral pleural effusions, developing over 2 days Borderline cardiomegaly Posterior dependent pulmonary atelectatic changes Subcentimeter right hepatic lobe low-attenuation lesions, too small to characterize, most likely benign simple cysts or bile hamartomas Other findings as noted, including small sliding-type hiatal hernia, embolic coils in the right pelvis This agrees with the preliminary interpretation provided overnight by Dr. Cabrera. Images were also reviewed in person with Dr. Fernandes The CT scanner at [facility] is accredited by the [employer] and the scans are performed using protocols designed to limit radiation exposure to as low as reasonably achievable to attain images of sufficient resolution adequate for diagnostic evaluation.
[2016-12-04] MEDS: HYDROmorphone 1mg/ml Carpuject IVP PRN ×3 (10:06→21:22)
--- NOTE | 2016-12-04 10:58 | General Surgery Progress Note ---
General Surgery-Progress Note Subjective Day of Surgery: november 29 Reason for Consult abdominal pain Symptoms: worse, voiding well, passing flatus Objective Last 24 Hour Vital Signs Date Time Temp Pulse Resp B/P Pulse Ox O2 Delivery O2 Flow Rate FiO2 12/04/16 08:05 96.6 58 18 137/66 99 Room Air 12/04/16 06:40 98.4 12/04/16 04:00 98.4 63 18 123/76 99 Room Air 12/03/16 23:40 98.6 67 18 147/86 97 Room Air 12/03/16 23:35 98.4 90 17 138/70 100 Room Air 12/03/16 23:30 98.4 90 17 138/70 100 Room Air 12/03/16 22:00 86 15 142/74 99 Room Air 12/03/16 21:12 98.4 12/03/16 20:20 98.6 94 16 140/72 100 Room Air 12/03/16 20:08 98.6 77 16 159/76 100 Room Air I&O Intake and Output 12/03/16 12/04/16 19:00 07:00 Intake Total 2030 ml Output Total 200 ml Balance 1830 ml Intake Oral 200 ml IV Total 1830 ml Output Urine Total 200 ml # Voids 3 # Bowel Movements 4 Dressing: dry Wound: clean Drains: none Cardiovascular: RSR Respiratory: clear Abdomen: soft, flat, scaphoid, non-tender, present bowel sounds Extremities: no edema, no tenderness, no cyanosis Laboratory Tests Test 12/03/16 20:35 12/04/16 05:00 White Blood Count 9.2 K/UL (4.8-10.8) 8.5 K/UL (4.8-10.8) Red Blood Count 4.15 M/UL (4.20-5.40) L 3.71 M/UL (4.20-5.40) L Hemoglobin 12.6 G/DL (12.0-16.0) 11.1 G/DL (12.0-16.0) L Hematocrit 38.3 % (37.0-47.0) 34.7 % (37.0-47.0) L Mean Corpuscular Volume 92 FL (80-99) 94 FL (80-99) Mean Corpuscular Hemoglobin 30.4 PG (27.0-31.0) 29.9 PG (27.0-31.0) Mean Corpuscular Hemoglobin Concent 32.9 G/DL (32.0-36.0) 31.9 G/DL (32.0-36.0) L Red Cell Distribution Width 11.3 % (11.6-14.8) L 11.2 % (11.6-14.8) L Platelet Count 235 K/UL (150-450) 227 K/UL (150-450) Mean Platelet Volume 7.6 FL (6.5-10.1) 8.0 FL (6.5-10.1) Neutrophils (%) (Auto) 82.9 % (45.0-75.0) H 65.2 % (45.0-75.0) Lymphocytes (%) (Auto) 10.7 % (20.0-45.0) L 21.6 % (20.0-45.0) Monocytes (%) (Auto) 4.7 % (1.0-10.0) 11.0 % (1.0-10.0) H Eosinophils (%) (Auto) 0.2 % (0.0-3.0) 0.6 % (0.0-3.0) Basophils (%) (Auto) 1.5 % (0.0-2.0) 1.7 % (0.0-2.0) Urine Color Pale yellow Urine Appearance Clear Urine pH 8 (4.5-8.0) Urine Specific [place] 1.020 (1.005-1.035) Urine Protein 1+ (NEGATIVE) H Urine Glucose (UA) Negative (NEGATIVE) Urine Ketones 3+ (NEGATIVE) H Urine Occult Blood 5+ (NEGATIVE) H Urine Nitrite Negative (NEGATIVE) Urine Bilirubin Negative (NEGATIVE) Urine Urobilinogen Normal MG/DL (0.0-1.0) Urine Leukocyte Esterase 2+ (NEGATIVE) H Urine RBC 10-15 /HPF (0 - 2) H Urine WBC 5-10 /HPF (0 - 2) H Urine Squamous Epithelial Cells Moderate /LPF (NONE/OCC) H Urine Amorphous Sediment Moderate /LPF (NONE) H Urine Bacteria Moderate /HPF (NONE) H Sodium Level 140 mEQ/L (135-145) 140 mEQ/L (135-145) Potassium Level 3.0 mEQ/L (3.4-4.9) L 3.1 mEQ/L (3.4-4.9) L Chloride Level 97 mEQ/L (98-107) L 101 mEQ/L (98-107) Carbon Dioxide Level 25 mEQ/L (20-30) 26 mEQ/L (20-30) Anion Gap 18 (5-15) H 13 (5-15) Blood Urea Nitrogen 4 mg/dL (7-23) L 4 mg/dL (7-23) L Creatinine 0.7 mg/dL (0.5-0.9) 0.6 mg/dL (0.5-0.9) Estimat Glomerular Filtration Rate > 60 mL/min (>60) > 60 mL/min (>60) Glucose Level 130 mg/dL (74-106) H 118 mg/dL (74-106) H Calcium Level 9.5 mg/dL (8.6-10.2) 8.9 mg/dL (8.6-10.2) Total Bilirubin 0.6 mg/dL (0.0-1.2) 0.5 mg/dL (0.0-1.2) Aspartate Amino Transf (AST/SGOT) 16 U/L (5-40) 13 U/L (5-40) Alanine Aminotransferase (ALT/SGPT) 8 U/L (3-33) 6 U/L (3-33) Alkaline Phosphatase 66 U/L (35-104) 58 U/L (35-104) Total Protein 7.5 g/dL (6.6-8.7) 6.3 g/dL (6.6-8.7) L Albumin 4.4 g/dL (3.5-5.2) 3.7 g/dL (3.5-5.2) Globulin 3.1 g/dL 2.6 g/dL Albumin/Globulin Ratio 1.4 (1.0-2.7) 1.4 (1.0-2.7) Lipase 19 U/L (< 60) Imaging abdominal and pelvic CT no acute changes Assessment Post-op Diagnosis recurrent abdominal pain Plan Additional Comments reconsult GI, abdominal ultrasound Raymond Fernandes MD Dec 04, 2016 10:58
[2016-12-04] MEDS: D5NS w/KCl 40mEq 1000ml 1,000 ML IV SCH ×2 (11:07→19:20)
[2016-12-04 11:40] VITALS: BP 144/66
--- NOTE | 2016-12-04 13:56 | Diagnostic Imaging Report ---
Indication: Left-sided lower abdominal pain and vomiting Technique: [place]illa-scale and duplex images of the upper abdomen were obtained Comparison: Reference made to CT scan of the abdomen and pelvis 12/03/2016 Findings: Gallbladder is unremarkable, without stones, wall thickening, nor pericholecystic fluid. Sonographic Hunter's sign is negative. Common bile duct measures 5 mm in diameter. No intrahepatic biliary ductal dilatation. Liver demonstrates normal echogenicity. There is a questionable subtle 21 mm hypoechoic focus within the left hepatic lobe. No other focal abnormality. The right lobe lesions demonstrated on recent CT scan are not evident sonographically. Portal vein and hepatic veins are patent. Pancreas is unremarkable. Spleen is unremarkable. Left kidney measures 12 cm in length. Right kidney measures 11.7 cm length. Both kidneys demonstrate normal echogenicity. There is no hydronephrosis. No focal abnormality . Non-aneurysmal abdominal aorta . The uterus is imaged, demonstrates calcifications which are also demonstrated on prior CT. Impression: Questionable subtle 2.1 cm hypoechoic focus within the left hepatic lobe. Review of recent CT scan demonstrates no definite correlate of abnormality. There is an equivocal focus of subtle increased enhancement seen in the left hepatic lobe on image 10 of series 5 and image 18 of series 3, but the appearance of this is more suggestive of a hepatic venous confluence than a true lesion. The latter is not completely excludable, however, and the sensitivity of single phase hepatic imaging is somewhat limited. Consideration should be given to multiphasic hepatic MRI scanning for further evaluation Negative for gallstones or dilated ducts Uterine calcifications are demonstrated, also demonstrated on prior CT scans
[2016-12-04 15:59] VITALS: BP 138/72
[2016-12-04 20:00] VITALS: BP 135/80
[2016-12-04] MEDS ORDERED: HYDROmorphone 1mg/ml Carpuject IVP PRN (20:00)
[2016-12-04] MEDS ORDERED: Oxycodone/Acetaminophen 5-325 ORAL PRN ×2 (20:07→23:45)
--- NOTE | 2016-12-04 22:58 | General Progress Note ---
Assessment/Plan Assessment/Plan Assessments - Uterine fibroids - S/P UAE - now with post procedure abd pain and N/V - loose stools Recommendations - check C Diff - po as tolerate.. Subjective Allergies: Coded Allergies: No Known Allergies (Verified Allergy, Unknown, 10/29/07) Objective Last 24 Hour Vital Signs Date Time Temp Pulse Resp B/P Pulse Ox O2 Delivery O2 Flow Rate FiO2 12/04/16 20:00 98.4 54 19 135/80 100 Room Air 12/04/16 16:15 56 12/04/16 15:59 97.9 47 18 138/72 100 Room Air 12/04/16 15:32 97.9 12/04/16 11:40 98.2 62 18 144/66 99 Room Air 12/04/16 08:05 96.6 58 18 137/66 99 Room Air 12/04/16 06:40 98.4 12/04/16 04:00 98.4 63 18 123/76 99 Room Air 12/03/16 23:40 98.6 67 18 147/86 97 Room Air 12/03/16 23:35 98.4 90 17 138/70 100 Room Air 12/03/16 23:30 98.4 90 17 138/70 100 Room Air Intake and Output 12/03/16 12/04/16 18:59 06:59 Intake Total 1910 ml Output Total 200 ml Balance 1710 ml Intake Oral 200 ml IV Total 1710 ml Output Urine Total 200 ml # Voids 3 # Bowel Movements 4 Laboratory Tests 12/04/16 05:00: White Blood Count 8.5, Red Blood Count 3.71L, Hemoglobin 11.1L, Hematocrit 34.7L , Mean Corpuscular Volume 94, Mean Corpuscular Hemoglobin 29.9, Mean Corpuscular Hemoglobin Concent 31.9L, Red Cell Distribution Width 11.2L, Platelet Count 227, Mean Platelet Volume 8.0, Neutrophils (%) (Auto) 65.2, Lymphocytes (%) (Auto) 21.6, Monocytes (%) (Auto) 11.0H, Eosinophils (%) (Auto) 0.6, Basophils (%) (Auto) 1.7, Sodium Level 140, Potassium Level 3.1L, Chloride Level 101, Carbon Dioxide Level 26, Anion Gap 13, Blood Urea Nitrogen 4L, Creatinine 0.6, Estimat Glomerular Filtration Rate > 60, Glucose Level 118H, Calcium Level 8.9, Total Bilirubin 0.5, Aspartate Amino Transf (AST/SGOT) 13, Alanine Aminotransferase (ALT/SGPT) 6, Alkaline Phosphatase 58, Total Protein 6.3L, Albumin 3.7, Globulin 2.6, Albumin/Globulin Ratio 1.4 Height (Feet): 5 Height (Inches): 4.00 Weight (Pounds): 166 Objective WDWN NCAT supple CTA RRR Soft NT , ND non edema ALDO HERNANDEZ Dec 04, 2016 22:58
[2016-12-04] MEDS ORDERED: oxyCODONE 5mg IR tab ORAL PRN (23:45)
[2016-12-05 00:10] VITALS: BP 113/73
[2016-12-05] MEDS: D5NS w/KCl 40mEq 1000ml 1,000 ML IV SCH ×4 (03:17→20:30)
[2016-12-05 04:00] VITALS: BP 143/78
[2016-12-05] MEDS: HYDROmorphone 1mg/ml Carpuject IVP PRN (05:24)
[2016-12-05 08:07] VITALS: BP 131/79
[2016-12-05 08:49] LABS: ANION GAP 13 (5-15); CALCIUM 9.3 mg/dL (8.6-10.2); CARBON DIOXIDE 25 mEQ/L (20-30); CHLORIDE 102 mEQ/L (98-107); CREATININE 0.6 mg/dL (0.5-0.9); GLOMERULAR FILTRATION RATE > 60 mL/min (>60); HEMOLYSIS 2; MAGNESIUM 1.5 mg/dL (1.7-2.5); POTASSIUM 3.9 mEQ/L (3.4-4.9); SODIUM 140 mEQ/L (135-145)
--- NOTE | 2016-12-05 10:42 | General Surgery Progress Note ---
General Surgery-Progress Note Subjective Reason for Consult abdominal pain Symptoms: pain same, tolerating diet, voiding well, passing flatus Objective Last 24 Hour Vital Signs Date Time Temp Pulse Resp B/P Pulse Ox O2 Delivery O2 Flow Rate FiO2 12/05/16 08:07 98.6 58 20 131/79 100 Room Air 12/05/16 04:00 98.6 60 19 143/78 98 Room Air 12/05/16 00:10 98.2 58 19 113/73 98 Room Air 12/04/16 20:00 98.4 54 19 135/80 100 Room Air 12/04/16 16:15 56 12/04/16 15:59 97.9 47 18 138/72 100 Room Air 12/04/16 15:32 97.9 12/04/16 11:40 98.2 62 18 144/66 99 Room Air I&O Intake and Output 12/04/16 12/05/16 19:00 07:00 Intake Total 120 ml Balance 120 ml Intake Oral 120 ml # Voids 5 1 Dressing: dry Wound: clean Drains: none Cardiovascular: RSR Respiratory: clear Abdomen: soft, flat, scaphoid, present bowel sounds Laboratory Tests Test 12/05/16 08:00 Sodium Level 140 mEQ/L (135-145) Potassium Level 3.9 mEQ/L (3.4-4.9) Chloride Level 102 mEQ/L (98-107) Carbon Dioxide Level 25 mEQ/L (20-30) Anion Gap 13 (5-15) Blood Urea Nitrogen 3 mg/dL (7-23) L Creatinine 0.6 mg/dL (0.5-0.9) Estimat Glomerular Filtration Rate > 60 mL/min (>60) Glucose Level 118 mg/dL (74-106) H Calcium Level 9.3 mg/dL (8.6-10.2) Magnesium Level 1.5 mg/dL (1.7-2.5) L Imaging reviewed CT scan with radiologist, non specific thickening, left upper quadrant , not likely non target Assessment Post-op Diagnosis recurrent abdominal pain Plan Additional Comments stool cultures pending, advance diet per GI Raymond Fernandes MD Dec 05, 2016 10:42
[2016-12-05 11:39] LABS: BILIRUBIN,DIRECT 0.1 mg/dL (0.1-0.3); TOTAL PROTEIN 6.4 g/dL (6.6-8.7)
[2016-12-05 11:53] VITALS: BP 125/76
[2016-12-05 15:59] VITALS: BP 141/84
[2016-12-05] MEDS ORDERED: Ketorolac 30mg Inj IV ONE (16:45)
[2016-12-05 20:00] VITALS: BP 132/67
[2016-12-05] MEDS: Ketorolac 30mg Inj IV SCH (20:00)
[2016-12-06 04:00] VITALS: BP 138/61
[2016-12-06] MEDS: D5NS w/KCl 40mEq 1000ml 1,000 ML IV SCH (04:58)
[2016-12-06] MEDS: Ketorolac 30mg Inj IV SCH ×3 (06:00→12:00)
[2016-12-06 07:07] LABS: BASOPHILS % (AUTO) 1.6 % (0.0-2.0); EOSINOPHILS % (AUTO) 3.6 % (0.0-3.0); LYMPHOCYTES % (AUTO) 32.6 % (20.0-45.0); MEAN CORPUSCULAR HEMOGLOBIN 29.7 PG (27.0-31.0); MEAN CORPUSCULAR HGB CONC 31.4 G/DL (32.0-36.0); MEAN CORPUSCULAR VOLUME 95 FL (80-99); MEAN PLATELET VOLUME 7.6 FL (6.5-10.1); MONOCYTES % (AUTO) 13.2 % (1.0-10.0); PLATELET COUNT 255 K/UL (150-450); RED BLOOD COUNT 4.04 M/UL (4.20-5.40); RED CELL DISTRIBUTION WIDTH 11.3 % (11.6-14.8); WHITE BLOOD COUNT 5.4 K/UL (4.8-10.8)
[2016-12-06 08:00] VITALS: BP 124/74
[2016-12-06] MEDS ORDERED: Ketorolac 30mg Inj IM ONE (08:45)
[2016-12-06] MEDS ORDERED: Ketorolac 30mg Inj IV ONE (09:00)
--- NOTE | 2016-12-06 11:06 | General Surgery Progress Note ---
General Surgery-Progress Note Subjective Day of Surgery: november 29 Reason for Consult post op pain, and anusea Symptoms: improved, tolerating diet, passing flatus, BM Objective Last 24 Hour Vital Signs Date Time Temp Pulse Resp B/P Pulse Ox O2 Delivery O2 Flow Rate FiO2 12/06/16 08:00 98.2 50 18 124/74 99 Room Air 12/06/16 04:00 98.1 56 18 138/61 98 Room Air 12/05/16 20:00 99.5 61 18 132/67 99 Room Air 12/05/16 15:59 97.6 63 21 141/84 100 Room Air 12/05/16 11:53 98.1 60 20 125/76 97 Room Air I&O Intake and Output 12/05/16 12/06/16 19:00 07:00 Intake Total 1980 ml 520 ml Output Total 0 ml Balance 1980 ml 520 ml Intake Oral 900 ml 400 ml IV Total 1080 ml 120 ml Stool Total 0 ml # Voids 2 5 Dressing: dry Wound: clean Drains: none Cardiovascular: RSR Respiratory: clear Abdomen: soft, flat, scaphoid, non-tender, present bowel sounds Laboratory Tests Test 12/06/16 05:55 White Blood Count 5.4 K/UL (4.8-10.8) Red Blood Count 4.04 M/UL (4.20-5.40) L Hemoglobin 12.0 G/DL (12.0-16.0) Hematocrit 38.2 % (37.0-47.0) Mean Corpuscular Volume 95 FL (80-99) Mean Corpuscular Hemoglobin 29.7 PG (27.0-31.0) Mean Corpuscular Hemoglobin Concent 31.4 G/DL (32.0-36.0) L Red Cell Distribution Width 11.3 % (11.6-14.8) L Platelet Count 255 K/UL (150-450) Mean Platelet Volume 7.6 FL (6.5-10.1) Neutrophils (%) (Auto) 49.0 % (45.0-75.0) Lymphocytes (%) (Auto) 32.6 % (20.0-45.0) Monocytes (%) (Auto) 13.2 % (1.0-10.0) H Eosinophils (%) (Auto) 3.6 % (0.0-3.0) H Basophils (%) (Auto) 1.6 % (0.0-2.0) Imaging negative abdominal ultrasound yesterday Assessment Post-op Diagnosis recurrent abdominal pain Plan Additional Comments improved on toradol 30mg iv BID, + bm today, ok to discharge Raymond Fernandes MD Dec 06, 2016 11:06
[2016-12-06] MEDS ORDERED: TORADOL60 MG/2 ML PO (11:19)
[2016-12-06 12:00] VITALS: BP 132/71
--- NOTE | 2016-12-09 09:51 | Discharge Summary ---
Discharge Summary Hospital Course Date of Admission Dec 03, 2016 at 21:02 Date of Discharge Dec 06, 2016 at 15:00 Admitting Diagnosis post op pain Reason for Hospitalization: abdominal pain, nausea, vomting, loose stools HPI 51 y/old female with recent history of uterine artery embolization 2 to uterine fibroids presented with abdominal pain, nausea, vomiting, loose stools Consultations dr Lucas GI specialist Hospital Course patient admitted CT A/P - with progressive decreased attenuation of uterine masses, consistent with progressive necrosis of embolized uterine fibroids. No evident complication. IVF a/emetic prn voided had flatus started on po diet slowly pain management afebrile, no leucocytosis blood culture negative loose stool stopped, not able to check for stool C dif GI specialist seen and evaluated diet advanced as tolerated able to tolerate pain controlled surgeon cleared for discharge FINAL DIAGNOSES s/p recent uterine artery embolization ( 11/29) symptomatic uterine fibroids postoperative abdominal pain intractable n/v - resolved Discharge Medications Continued Medications: Ketorolac Tromethamine (Toradol) 60 Mg/2 Ml Vial 30 MG PO TID, VIAL Discharge Condition Upon Discharge: stable Discharge Disposition Patient was discharged to Home () Discharge Diagnoses: Discharge Instructions Discharge Instructions Special Instructions I have been assigned to complete a D/C Summary on this account. I was not involved in the patient management Angle Ferguson NP ([place]) Dec 09, 2016 09:51
== END 2016-12-06 15:00 | disposition home or self-care (01) | DRG 948 ==
LOC: EMR 20:50 → 3E 21:02 → OBSVTOIN 21:02 → EDBEDREQ 21:59
DX: G89.18 Other acute postprocedural pain (principal); D25.9 Leiomyoma of uterus, unspecified; R11.2 Nausea with vomiting, unspecified; R10.9 Unspecified abdominal pain
CPT/HCPCS: 36415; 74177; 76700; 80048; 80053; 80076; 81003; 83690; 83735; 85025; 87081; 87086; J2405